=== PATIENT | female | born 1995 | race Caucasian/White ===

== ENCOUNTER 2018-08-06 18:21 | Emergency (ER) | payer MEDICAID ==
[~2018-08-06] VITALS: Ht 180.3 cm; Wt 167.8 kg
[2018-08-06 18:38] VITALS: BP_SYST 172
[2018-08-06 19:22] VITALS: BP_SYST 172
== END 2018-08-06 19:22 | disposition home or self-care (01) ==
LOC: SED 18:21
DX: K08.89 Other specified disorders of teeth and supporting structures (principal); R03.0 Elevated blood-pressure reading, without diagnosis of hypertension
CPT/HCPCS: 81025; 99283